=== PATIENT | male | born 1995 | race African-American/Black ===

== ENCOUNTER 2023-10-15 21:34 | Emergency (ER) | payer OTHER ==
[2023-10-15 22:08] LABS: Bilirubin Neg (Negative); Blood, Urine 25 (Negative); Clarity Clear (Clear); Glucose, Urine (Dipstick) Normal (Negative); Ketone, Urine 5 mg/dL (Negative); Leukocyte 25 (Negative); Nitrite Negative (Negative); Protein, Urine (Dipstick) 15 mg/dl (Neg-Trace)
[2023-10-15 22:16] LABS: CAUTI Indications for Culture Dysuria,urgency,freq
[2023-10-15 22:18] LABS: Bacteria/HPF 1+ HPF (None Seen); Mucous/LPF 1+ LPF (<2+); Squamous Epithelial 0-3 HPF (0-3)
[2023-10-15 22:20] LABS: Urine Culture Reflex No No
[2023-10-17 03:16] LABS: Chlam.trachomatis by PCR,Urine Not Detected (NotDetected); GC N.gonorrhoeae PCR,UrineVOID Not Detected (NotDetected)
== END 2023-10-15 23:39 | disposition home or self-care (01) ==
LOC: CSHERS 21:34
DX: R30.0 Dysuria (principal)
CPT/HCPCS: 81001; 87491; 87591; 99283